=== PATIENT | male | born 1990 | race Caucasian/White ===

== ENCOUNTER 2019-11-03 23:07 | Emergency (ER) | payer OTHER ==
[~2019-11-03] VITALS: Ht 170.2 cm; Wt 115.2 kg
[2019-11-03 23:15] VITALS: Ht 170.2 cm; Wt 115.2 kg
[2019-11-04 03:49] VITALS: BP 139/94
== END 2019-11-04 03:49 | disposition home or self-care (01) ==
LOC: ED 23:07
DX: F41.9 Anxiety disorder, unspecified (principal); F32.9 Major depressive disorder, single episode, unspecified; Z76.0 Encounter for issue of repeat prescription